=== PATIENT | male | born 1950 | race African-American/Black ===

== ENCOUNTER 2018-09-21 16:48 | Inpatient (IN) | payer MEDICARE, MEDICAID ==
[~2018-09-21] VITALS: Ht 190.5 cm; Wt 102.1 kg
[2018-09-21] MEDS ORDERED: ACETAMINOPHEN 325MG TABLET PO STA (17:22)
[2018-09-21] MEDS ORDERED: SODIUM CHLORIDE 0.9% 1,000 ML IV ONE (17:24)
[2018-09-21 18:00] LABS: CHLORIDE 100 mEq/L (98-107); INR 1.4; PROTHROMBIN TIME 13.8 sec (9.6-11.0)
[2018-09-21 18:02] LABS: HEMATOCRIT. 33.6 % (42.0-52.0); HEMOGLOBIN. 11.4 g/dL (14.0-18.0); MEAN CORPUSCULAR HEMOGLOBIN 30.2 pg (28.0-32.0); MEAN CORPUSCULAR VOLUME 89.1 fL (80.0-94.0); MEAN PLATELET VOLUME 8.9 fl (7.4-10.4); PLATELET 319 x1000/uL (130-400); RED BLOOD CELL COUNT 3.77 mill/uL (4.7-6.1); RED CELL DISTRIBUTION WIDTH 14.5 % (11.6-14.6)
[2018-09-21 18:04] LABS: ETHANOL BLOOD < 10 mg/dL
[2018-09-21] MEDS ORDERED: PIPERACILLIN/TAZOBACTAM 3.375GM/50ML PREMIX IV ONE (18:15)
[2018-09-21] MEDS ORDERED: PIPERACILLIN/TAZ 3.375G PREMIX 50 ML IV NR (18:38)
[2018-09-21 18:39] LABS: CLARITY URINE CLOUDY (CLEAR); COLOR URINE DARK YELLOW (YELLOW); KETONES URINE NEGATIVE (NEGATIVE); LEUKOCYTE ESTERASE URINE NEGATIVE (NEGATIVE); NITRITE URINE NEGATIVE (NEGATIVE); OCCULT BLOOD URINE 1+ (NEGATIVE); PH URINE 5.5 (4.5-8.0); PROTEIN URINE 1+ (NEGATIVE); SPECIFIC GRAVITY URINE 1.021 (1.005-1.030)
[2018-09-21] MEDS ORDERED: SODIUM CHLORIDE 0.9% 1000ML BAG (SEPSIS BOLUS) IV ONE (18:45)
[2018-09-21 19:02] LABS: PLATELET ESTIMATE NORMAL
[2018-09-21 19:08] LABS: *BARBITURATES SCREEN URINE NEGATIVE (NEGATIVE)
[2018-09-21 19:10] LABS: *AMPHETAMINES SCREEN URINE NEGATIVE (NEGATIVE); *BENZODIAZEPINES SCREEN URINE NEGATIVE (NEGATIVE); *COCAINE SCREEN URINE NEGATIVE (NEGATIVE); CANNABINOID URINE SCREEN PRESUMTIVE POSITIVE (NEGATIVE); METHADONE URINE SCREEN NEGATIVE (NEGATIVE); OPIATES URINE SCREEN NEGATIVE (NEGATIVE); PHENCYCLIDINE URINE SCREEN NEGATIVE (NEGATIVE)
[2018-09-21] MEDS ORDERED: VANCOMYCIN 1 G PREMIX 200 ML IV SCH (20:00)
[2018-09-21] MEDS ORDERED: ACETAMINOPHEN 650MG SUPP PR PRN (23:00)
[2018-09-21] MEDS ORDERED: MORPHINE SULFATE 2 MG/ML CPJ (NOT FOR IM USE) IV PRN (23:00)
[2018-09-21] MEDS ORDERED: ONDANSETRON HCL 4MG/2ML INJ IV PRN (23:00)
[2018-09-21 23:47] VITALS: BP 158/92
[2018-09-22] VITALS: BP 149/91
[2018-09-22] MEDS: DEXT 5%/0.45% NACL 1000ML 1,000 ML IV SCH ×2 (00:03→15:53)
[2018-09-22] MEDS: PIPERACILLIN/TAZ 3.375G PREMIX 50 ML IV SCH ×3 (03:52→22:48)
[2018-09-22 04:00] VITALS: BP 126/67
[2018-09-22] MEDS: METRONIDAZOLE 500 MG PREMIX 100 ML IV SCH ×2 (05:47→13:18)
[2018-09-22 07:03] LABS: HEMATOCRIT. 30.4 % (42.0-52.0); HEMOGLOBIN. 10.2 g/dL (14.0-18.0); MEAN CORPUSCULAR HEMOGLOBIN 29.6 pg (28.0-32.0); MEAN CORPUSCULAR VOLUME 88.1 fL (80.0-94.0); MEAN PLATELET VOLUME 8.6 fl (7.4-10.4); PLATELET 320 x1000/uL (130-400); RED BLOOD CELL COUNT 3.45 mill/uL (4.7-6.1); RED CELL DISTRIBUTION WIDTH 14.5 % (11.6-14.6)
[2018-09-22 07:18] LABS: CHLORIDE 104 mEq/L (98-107)
[2018-09-22 08:00] VITALS: BP 120/66
[2018-09-22] MEDS: AMLODIPINE 10MG TABLET PO SCH (09:38)
[2018-09-22] MEDS: ACETAMINOPHEN 325MG TABLET PO PRN ×3 (09:39→21:09)
[2018-09-22 12:00] VITALS: BP 99/51
[2018-09-22 16:00] VITALS: BP 129/66
[2018-09-22 17:27] LABS: HEPATITIS B SURFACE ANTIGEN NEGATIVE
[2018-09-22 17:55] LABS: HEPATITIS A AB IGM NEGATIVE (NEGATIVE)
[2018-09-22 18:31] LABS: PLATELET ESTIMATE NORMAL
[2018-09-22 20:00] VITALS: BP 120/61
[2018-09-23] VITALS (19 sets, daily range): BP systolic 114–147; BP diastolic 61–85
[2018-09-23] MEDS: METRONIDAZOLE 500 MG PREMIX 100 ML IV SCH ×2 (00:02→06:15)
[2018-09-23] MEDS: PIPERACILLIN/TAZ 3.375G PREMIX 50 ML IV SCH ×3 (05:21→21:31)
[2018-09-23] MEDS ORDERED: LIDOCAINE HCL 1% 20ML VIAL (Pyxis) INJ ONE (09:33)
[2018-09-23] MEDS ORDERED: SODIUM BICARBONATE 4% (2.4MEQ) 5ML VIAL IV ONE (09:33)
[2018-09-23] MEDS ORDERED: FENTANYL CITRATE/PF 50MCG/ML 2ML VIAL ONE (09:52)
[2018-09-23] MEDS ORDERED: FENTANYL CITRATE/PF 50MCG/ML 2ML VIAL IV ONE (10:30)
[2018-09-23] MEDS ORDERED: VANCOMYCIN 2,000 MG in DEXT 5% WATER 500 ML IV SCH (13:00)
[2018-09-23] MEDS: ACETAMINOPHEN 325MG TABLET PO PRN ×2 (13:47→20:33)
[2018-09-23] MEDS: AMLODIPINE 10MG TABLET PO SCH (13:48)
[2018-09-23 15:13] LABS: HEMOGLOBIN. 11.7 g/dL (14.0-18.0); MEAN CORPUSCULAR HEMOGLOBIN 29.8 pg (28.0-32.0); MEAN CORPUSCULAR VOLUME 88.8 fL (80.0-94.0); MEAN PLATELET VOLUME 8.3 fl (7.4-10.4); PLATELET 418 x1000/uL (130-400); RED BLOOD CELL COUNT 3.94 mill/uL (4.7-6.1); RED CELL DISTRIBUTION WIDTH 14.5 % (11.6-14.6)
[2018-09-23 15:21] LABS: CHLORIDE 103 mEq/L (98-107)
[2018-09-23 15:29] LABS: PLATELET ESTIMATE INCREASED
[2018-09-23] MEDS: DEXT 5%/0.45% NACL 1000ML 1,000 ML IV SCH (17:06)
[2018-09-24] VITALS: BP 117/66
[2018-09-24] MEDS: DEXT 5%/0.45% NACL 1000ML 1,000 ML IV SCH ×2 (01:30→18:45)
[2018-09-24 04:00] VITALS: BP 119/70
[2018-09-24] MEDS: PIPERACILLIN/TAZ 3.375G PREMIX 50 ML IV SCH ×3 (06:34→21:42)
[2018-09-24 08:00] VITALS: BP 106/67
[2018-09-24] MEDS: AMLODIPINE 10MG TABLET PO SCH (08:40)
[2018-09-24 12:00] VITALS: BP 113/63
[2018-09-24 16:00] VITALS: BP 123/71
[2018-09-24 20:00] VITALS: BP 131/73
[2018-09-25] VITALS: BP 109/58
[2018-09-25 04:00] VITALS: BP 107/54
[2018-09-25] MEDS: PIPERACILLIN/TAZ 3.375G PREMIX 50 ML IV SCH ×3 (06:15→22:02)
[2018-09-25 08:32] VITALS: BP 117/74
[2018-09-25] MEDS: AMLODIPINE 10MG TABLET PO SCH (09:00)
[2018-09-25] MEDS: DEXT 5%/0.45% NACL 1000ML 1,000 ML IV SCH (11:08)
[2018-09-25 11:54] VITALS: BP 114/64
[2018-09-25] MEDS: GUAIFENESIN/CODEINE 200-20MG/10ML UDC PO PRN ×2 (13:50→22:02)
[2018-09-25 15:21] VITALS: BP 117/71
[2018-09-25 20:00] VITALS: BP 138/77
[2018-09-26] VITALS: BP 142/80
[2018-09-26 04:00] VITALS: BP 135/88
[2018-09-26] MEDS: DEXT 5%/0.45% NACL 1000ML 1,000 ML IV SCH ×2 (05:32→20:19)
[2018-09-26] MEDS: PIPERACILLIN/TAZ 3.375G PREMIX 50 ML IV SCH ×3 (05:32→21:43)
[2018-09-26 08:20] VITALS: BP 134/82
[2018-09-26] MEDS: AMLODIPINE 10MG TABLET PO SCH (08:24)
[2018-09-26] MEDS: GUAIFENESIN/CODEINE 200-20MG/10ML UDC PO PRN ×2 (08:30→20:18)
[2018-09-26 11:42] VITALS: BP 121/78
[2018-09-26 15:43] VITALS: BP 135/82
[2018-09-26 20:00] VITALS: BP 128/72
[2018-09-26] MEDS: ACETAMINOPHEN 325MG TABLET PO PRN (20:19)
[2018-09-27] VITALS: BP 135/83
[2018-09-27 04:00] VITALS: BP 139/78
[2018-09-27] MEDS: GUAIFENESIN/CODEINE 200-20MG/10ML UDC PO PRN (04:26)
[2018-09-27] MEDS: PIPERACILLIN/TAZ 3.375G PREMIX 50 ML IV SCH ×2 (05:36→14:36)
[2018-09-27 08:00] VITALS: BP 144/81
[2018-09-27] MEDS: AMLODIPINE 10MG TABLET PO SCH (08:46)
[2018-09-27 11:31] LABS: BASOPHILS % 0.6 % (0.0-2.0); EOSINOPHILS % 0.5 % (0.0-5.0); HEMATOCRIT. 32.1 % (42.0-52.0); HEMOGLOBIN. 10.7 g/dL (14.0-18.0); LYMPHOCYTES % 9.1 % (20.0-50.0); MEAN CORPUSCULAR HEMOGLOBIN 29.8 pg (28.0-32.0); MEAN CORPUSCULAR VOLUME 89.7 fL (80.0-94.0); MEAN PLATELET VOLUME 7.7 fl (7.4-10.4); MONOCYTES % 7.2 % (2.0-8.0); NEUTROPHILS % 82.6 % (40.0-76.0); PLATELET 571 x1000/uL (130-400); RED BLOOD CELL COUNT 3.58 mill/uL (4.7-6.1); RED CELL DISTRIBUTION WIDTH 14.5 % (11.6-14.6)
[2018-09-27 12:00] VITALS: BP 124/81
[2018-09-27] MEDS: ACETAMINOPHEN 325MG TABLET PO PRN (14:13)
[2018-09-27] MEDS: DEXT 5%/0.45% NACL 1000ML 1,000 ML IV SCH (14:13)
[2018-09-27 15:24] VITALS: BP 124/81
== END 2018-09-27 16:35 | disposition home or self-care (01) | DRG 871 ==
LOC: ER 17:04 → 6WST 18:51 → EDBEDREQTM 19:24 → EDBEDREQ 19:24 → ENRESERV 19:46 → 5WST 09-23 12:25
PROVIDERS: ADMIT Hospitalist; ATTEND Hospitalist
PROC: 0F9030Z Drainage of Liver with Drainage Device, Percutaneous Approach (ICD-10-PCS; principal; 2018-09-23)
DX: A40.9 Streptococcal sepsis, unspecified (principal); E43 Unspecified severe protein-calorie malnutrition; K75.0 Abscess of liver; D68.9 Coagulation defect, unspecified; N17.9 Acute kidney failure, unspecified; F12.90 Cannabis use, unspecified, uncomplicated; D73.89 Other diseases of spleen; K82.8 Other specified diseases of gallbladder; M10.9 Gout, unspecified; I10 Essential (primary) hypertension; R74.0 Nonspecific elevation of levels of transaminase and lactic acid dehydrogenase [LDH]; Z68.28 Body mass index [BMI] 28.0-28.9, adult
CPT/HCPCS: 36415; 71045; 74176; 76705; 76942; 80048; 80076; 80305; 80320; 83605; 83880; 84145; 84484; 84550; 85651; 86705; 86709; 86803; 87077; 87186; 87340; 93005; 93306; 93970; 99291; C1725; C1729; C1893; J2270; J2543; J3010; J3370; J3490; J7030; J7060; L8514; G0480